=== PATIENT | female | born 1940 | race Two or more races ===

== ENCOUNTER → 2018-03-03 | Outpatient (CLI) | payer MEDICARE, OTHER ==
[~2018-03-03] MED LIST: ACET-66 PO; INSLAN SQ; INSNOV SQ; MULT-1259 PO; OMEP20CA10 PO; SIMV20TA2 PO; SOTA80 PO; VALS80TA2 PO; VERA240C3 PO; WARF5 PO; WARF7.5 PO
== END | disposition home or self-care (01) ==
LOC: RADPV 08:35
PROVIDERS: ATTEND Hospitalist
DX: I65.23 Occlusion and stenosis of bilateral carotid arteries (principal); I10 Essential (primary) hypertension; Z85.528 Personal history of other malignant neoplasm of kidney
CPT/HCPCS: 76770; 93880